=== PATIENT | female | born 1985 | race Caucasian/White ===

== ENCOUNTER 2020-01-18 05:55 | Inpatient (IN) | payer BC ==
--- NOTE | 2020-01-17 18:10 | P.HPOB ---
History of Present Illness H&P Date: 01/17/20 Chief Complaint: Requested induction of labor. This patient is a pleasant 34-year-old 4 para 3 female estimated date of confinement 01/24/2020 estimated gestational age 39 weeks who presents to labor and delivery for requested induction of labor. Patient's care is complicated by diet-controlled gestational diabetes. Patient failed her 3 hour GTT was seen by Dr. Lynn throughout the with excellent control. testing has been normal. Patient is uncomfortable and requesting induction at this time. Review of Systems Genitourinary: Reports Menstruation: Reports amenorrhea Past Medical History Past Medical History: No Reported History Additional Past Medical History / Comment(s): Patient has had 3 vaginal deliveries. Gestational diabetes with this . History of Any Multi-Drug Resistant Organisms: None Reported Past Surgical History: No Surgical Hx Reported Past Anesthesia/Blood Transfusion Reactions: No Reported Reaction Past Psychological History: No Psychological Hx Reported Smoking Status: Never smoker Past Alcohol Use History: None Reported Past Drug Use History: None Reported - Past Family History Mother Family Medical History: No Reported History Medications and Allergies Home Medications Medication Instructions Recorded Confirmed Type Ibuprofen [Motrin] 600 mg PO Q6HR PRN #40 tab 04/21/14 Rx Allergies Allergy/AdvReac Type Severity Reaction Status Date / Time No Known Allergies Allergy Verified 04/20/14 06:24 Exam - OBG Physical Exam Abdomen: bowel sounds normal, no diffuse tenderness, no bruit present, no guarding noted, no hepatomegaly, no splenomegaly, no mass Vulva: both: normal Vagina: normal moisture, no discharge Cervix: Cervix in the office with 3 cm dilated and soft. Uterus: enlarged (Fundal height 38 cm.) Results blood work shows she is O positive, rubella immune, RPR nonreactive, hepatitis B negative, group B strep was positive, Glucola was 142 with an abnormal 3 hour gtt. Ultrasounds have shown normal growth. Assessment and Plan Assessment: This is a pleasant 34-year-old 4 para 3 female 39 weeks gestation who is admitted to labor and delivery for requested induction of labor. Plan is induction of labor and anticipate vaginal delivery. I will prophylactically treat with IV antibiotics due to a positive group B strep culture. (1) 39 weeks gestation of Status: Acute Code(s): Z3A.39 - 39 WEEKS GESTATION OF SNOMED Code(s): 74560798 (2) Gestational diabetes mellitus (GDM) Status: Acute Code(s): O24.419 - GESTATIONAL DIABETES MELLITUS IN , UNSP CONTROL SNOMED Code(s): 49084781 (3) Group B streptococcal carriage complicating Status: Acute Code(s): O99.820 - STREPTOCOCCUS B CARRIER STATE COMPLICATING SNOMED Code(s): 610541169895283 (4) Elective induction of labor planned Status: Acute Code(s): [id number] - SNOMED Code(s): 431046878
[2020-01-18] MEDS ORDERED: TERBUTALINE 1 MG/ML VIAL SQ PRN (06:02)
[2020-01-18] MEDS ORDERED: LIDOCAINE 0.5% (PF) 5 MG/ML (50 ML SDV) SQ PRN (06:02)
[2020-01-18] MEDS ORDERED: METHYLERGONOVINE 0.2 MG/ML 1 ML AMP IM PRN (06:02)
[2020-01-18] MEDS ORDERED: OXYTOCIN 30 UNITS/500 ML NS 30 UNIT in SALINE 1 500ML.BAG IV SCH (06:02)
[2020-01-18] MEDS ORDERED: CARBOPROST TROMETHAMINE 250 MCG/ML 1 ML AMP IM PRN (06:02)
[2020-01-18] MEDS ORDERED: AMPICILLIN 2,000 MG in SODIUM CHLORIDE 0.9% 100 ML IVPB STA (06:02)
[2020-01-18] MEDS ORDERED: LACTATED RINGERS 1,000 ML IV SCH (06:02)
[2020-01-18] MEDS ORDERED: OXYTOCIN 10 UNIT/ML 1 ML VIAL IM PRN (06:02)
[2020-01-18 06:40] LABS: Glucose,Whole Blood 98 mg/dL (75-99)
[2020-01-18 06:40] LABS: Basophils % (A) 0 %; Eosinophils # (A) 0.1 k/uL (0-0.7); Eosinophils % (A) 2 %; HCT 37.9 % (34.0-46.0); HGB 12.8 gm/dL (11.4-16.0); Lymphocytes # (A) 2.1 k/uL (1.0-4.8); Lymphocytes % (A) 25 %; MCH 31.1 pg (25.0-35.0); MCHC 33.7 g/dL (31.0-37.0); MCV 92.3 fL (80.0-100.0); Mean Platelet Volume 9.3; Monocytes # (A) 0.6 k/uL (0-1.0); Monocytes % (A) 7 %; Neutrophils # (A) 5.2 k/uL (1.3-7.7); Neutrophils % (A) 62 %; Platelet Count 130 k/uL (150-450); RBC 4.11 m/uL (3.80-5.40); RDW 13.4 % (11.5-15.5); WBC 8.4 k/uL (3.8-10.6)
[2020-01-18] MEDS: AMPICILLIN 1,000 MG in SODIUM CHLORIDE 0.9% 50 ML IVPB SCH ×2 (10:22→14:43)
[2020-01-18] MEDS ORDERED: SODIUM CHLORIDE 0.9% 100 ML BAG ONE (13:25)
[2020-01-18] MEDS ORDERED: fentaNYL (PF) 50 MCG/ML 5 ML AMP ONE (13:25)
[2020-01-18] MEDS ORDERED: ROPIVACAINE 5MG/ML 20ML VIAL ONE (13:25)
[2020-01-18 14:56] LABS: Hemoglobin A1C 4.8 % (4.0-6.0)
--- NOTE | 2020-01-18 18:22 | P.PROBDLV ---
Vaginal Delivery Note - . Vaginal Delivery Note: Normal vaginal delivery viable male infant Apgars 9 and 9 delivery time was 1719 hrs. Please see dictated H&P for intimate details of this patient's admission. Brief summary this is a pleasant 34-year-old 4 para 3 female 39 and one sevenths weeks gestation who is admitted to labor and delivery for induction of labor. Patient is admitted she's approximately 3 cm dilated artificial rupture membranes for clear fluid. Patient is given ampicillin for positive group B strep culture and then has Pitocin started per protocol for induction. Labor progresses and she does get an epidural at about 5 cm dilated but secondary to some hypotension this is discontinued. Patient continues to progress and gets to complete. Patient pushes the head to the perineum. This time there is some bradycardia and so to facilitate delivery a midline episiotomy is made. We then have controlled delivery of the 's head over the perineum. Mouth and nares are bulb suctioned. There is no evidence of a nuchal cord. With gentle downward traction we then have deliver the anterior and posterior shoulder and rest this 's body. 's presentation was straight occiput anterior presentation. This is a vigorous viable male infant Apgars 9 and 9 delivery time was 1751 hrs. Infant is laid on the mother's abdomen. After the umbilical cord is then pulsating is doubly clamped and then cut. The placenta is then spontaneously delivered intact. Estimated blood loss is approximately 100 mL. Inspection of perineum shows second-degree lacerations repaired with 3-0 Vicryl usual fashion excellent reapproximation is noted. All counts correct 3. There are no complications. Infant and mother are stable in delivery room.
[2020-01-18] MEDS ORDERED: LANOLIN CREAM 5 GM TUBE TOPICAL PRN (19:09)
[2020-01-18] MEDS ORDERED: BENZOCAINE/MENTHOL SPRAY 1 GM/SPRAY AEROSOL TOPICAL PRN (19:09)
[2020-01-18] MEDS ORDERED: SIMETHICONE 80 MG CHEWABLE PO PRN (19:09)
[2020-01-18] MEDS ORDERED: HYDROCORTISONE 2.5% RECTAL CREAM 30 GM TUBE RECTAL PRN (19:09)
[2020-01-18] MEDS ORDERED: WITCH HAZEL 1 EACH MED..PAD TOPICAL PRN (19:09)
[2020-01-18] MEDS ORDERED: ZOLPIDEM 5 MG TAB PO PRN (19:09)
[2020-01-18] MEDS ORDERED: BISACODYL 10 MG SUPP RECTAL PRN (19:09)
[2020-01-18] MEDS ORDERED: diphenhydrAMINE 50 MG/ML 1 ML VIAL IVP PRN (19:09)
[2020-01-18] MEDS ORDERED: diphenhydrAMINE 25 MG CAP PO PRN (19:09)
[2020-01-18] MEDS ORDERED: OXYTOCIN 20 UNITS/1000 ML NS 1,000 ML IV SCH (19:09)
[2020-01-18] MEDS: IBUPROFEN 600 MG TAB PO PRN (19:15)
[2020-01-18] MEDS: SENNOSIDES-DOCUSATE SODIUM 1 EACH TAB PO SCH (19:16)
[2020-01-18] MEDS: ACETAMINOPHEN TAB 325 MG TAB PO PRN (21:17)
[2020-01-19 00:04] VITALS: RESP 16
[2020-01-19] MEDS: IBUPROFEN 600 MG TAB PO PRN ×2 (02:32→12:00)
--- NOTE | 2020-01-19 06:27 | P.PNOBGVD ---
Subjective - Subjective Patient reports: Reports appetite normal, Reports voiding normally, Reports pain well controlled, Reports ambulating normally : doing well Objective - Latest Vital Signs Latest vital signs: Vital Signs Temp Pulse Resp BP Pulse Ox 01/19/20 04:00 97.6 F 74 16 111/70 98 01/19/20 00:00 98.1 F 80 16 107/66 98 01/18/20 20:13 98.3 F 88 18 115/76 01/18/20 19:43 98.2 F 88 18 115/76 01/18/20 19:13 98.2 F 80 18 123/70 99 01/18/20 18:57 98.4 F 88 16 118/61 01/18/20 18:43 93 16 107/56 01/18/20 18:28 93 16 107/56 01/18/20 18:13 99.8 F H 92 16 120/70 Intake and Output 01/18/20 01/18/20 01/19/20 14:59 22:59 06:59 Other: # Voids 3 2 1 - Exam Lungs: bilateral: normal Chest: Normal S1, Normal S2 Extremities: Present: normal Abdomen: Present: normal appearance, soft Uterus: Present: normal, firm - Labs Labs: Abnormal Lab Results - Last 24 Hours (Table) 01/18/20 Range/Units 06:12 Plt Count 130 L (150-450) k/uL Assessment and Plan Assessment: day #1. Patient is resting without complaints and wishes to go home. Vital signs are stable she is afebrile. Uterus is firm nontender she's having normal lochia. My impression this is a normal course. Plan is to continue routine care discharge home later today (1) 39 weeks gestation of Current Visit: No Status: Acute Code(s): Z3A.39 - 39 WEEKS GESTATION OF P GRACIE SNOMED Code(s): 85187284 (2) Gestational diabetes mellitus (GDM) Current Visit: No Status: Acute Code(s): O24.419 - GESTATIONAL DIABETES MELLITUS IN , UNSP CONTROL SNOMED Code(s): 00102561 (3) Group B streptococcal carriage complicating Current Visit: No Status: Acute Code(s): O99.820 - STREPTOCOCCUS B CARRIER STATE COMPLICATING SNOMED Code(s): 776504790200273 (4) Elective induction of labor planned Current Visit: No Status: Acute Code(s): DEV2689 - SNOMED Code(s): 178116058
--- NOTE | 2020-01-19 06:33 | P.DS ---
Providers Date of admission: 01/18/20 05:55 Expected date of discharge: 01/19/20 Attending physician: Carlitos Rico Primary care physician: Stated None - Discharge Diagnosis(es) (1) 39 weeks gestation of Current Visit: No Status: Acute (2) Gestational diabetes mellitus (GDM) Current Visit: No Status: Acute (3) Group B streptococcal carriage complicating Current Visit: No Status: Acute (4) Elective induction of labor planned Current Visit: No Status: Acute Hospital Course: Please see dictated H&P for intimate details of this patient's admission. Brief summary this pleasant 34-year-old 4 para 3 female 39 and one sevenths weeks gestation admitted to labor and delivery for induction of labor. Patient was on have a vaginal delivery viable male . Please see dictated delivery note. day #1 patient without complaints she wishes to go home. Patient's felt be stable for discharge home follow up with me in 6 weeks. Procedures: Induction of labor and normal vaginal delivery Patient Condition at Discharge: Good Plan - Discharge Summary New Discharge Prescriptions: New Ibuprofen [Motrin] 600 mg PO Q6HR PRN #40 tab PRN Reason: Mild Pain Or Fever >= 100.5 No Action Pnv,Calcium 72/Iron/Folic Acid [ Plus Tablet] 1 each PO DAILY Discharge Medication List Pnv,Calcium 72/Iron/Folic Acid [ Plus Tablet] 1 each PO DAILY 01/18/20 [ History] Ibuprofen [Motrin] 600 mg PO Q6HR PRN #40 tab 01/19/20 [Rx] Follow up Appointment(s)/Referral(s): Carlitos Rico MD [STAFF PHYSICIAN] - 03/01/20 2:15 pm Patient Instructions/Handouts: Vaginal Delivery (DC) Activity/Diet/Wound Care/Special Instructions: No intercourse or anything per vagina for 6 weeks. Please call if any fever, chills, excessive vaginal bleeding, and/or abdominal pain. Discharge Disposition: HOME SELF-CARE
[2020-01-19] MEDS: SENNOSIDES-DOCUSATE SODIUM 1 EACH TAB PO SCH (08:16)
[2020-01-19 16:09] VITALS: BP 106/70; PULSE 74; TEMP 98.7
[2020-01-19] MEDS: ACETAMINOPHEN TAB 325 MG TAB PO PRN (16:13)
== END 2020-01-19 18:36 | disposition home or self-care (01) | DRG 807 ==
LOC: 4FBP 05:55
PROVIDERS: ADMIT Obstetrics & Gynecology; ATTEND Obstetrics & Gynecology
PROC: 3E0R3BZ Introduction of Anesthetic Agent into Spinal Canal, Percutaneous Approach (ICD-10-PCS; principal; 2020-01-18)
PROC: 00HU33Z Insertion of Infusion Device into Spinal Canal, Percutaneous Approach (ICD-10-PCS; principal; 2020-01-18)
PROC: 10907ZC Drainage of Amniotic Fluid, Therapeutic from Products of Conception, Via Natural or Artificial Opening (ICD-10-PCS; principal; 2020-01-18)
PROC: 3E033VJ Introduction of Other Hormone into Peripheral Vein, Percutaneous Approach (ICD-10-PCS; principal; 2020-01-18)
PROC: 0W8NXZZ Division of Female Perineum, External Approach (ICD-10-PCS; principal; 2020-01-18)
PROC: 10E0XZZ Delivery of Products of Conception, External Approach (ICD-10-PCS; principal; 2020-01-18)
PROC: 0KQM0ZZ Repair Perineum Muscle, Open Approach (ICD-10-PCS; principal; 2020-01-18)
DX: O99.824 Streptococcus B carrier state complicating childbirth (principal); Z37.0 Single live birth; O24.420 Gestational diabetes mellitus in childbirth, diet controlled; O70.1 Second degree perineal laceration during delivery; Z3A.39 39 weeks gestation of pregnancy; Z79.899 Other long term (current) drug therapy; O76 Abnormality in fetal heart rate and rhythm complicating labor and delivery
CPT/HCPCS: 83036; 85025; 86850; 86900; 86901